=== PATIENT | female | born 1970 | race Caucasian/White ===

== ENCOUNTER 2022-01-24 00:24 | Emergency (ER) | payer OTHER ==
[~2022-01-24] VITALS: Ht 165.1 cm; Wt 113.4 kg
[2022-01-24 01:15] VITALS: BP_SYST 114
[2022-01-24] MEDS ORDERED: ACETAMINOPHEN 500 MG TABLET PO ONE (02:00)
[2022-01-24 05:50] VITALS: BP_SYST 140
== END 2022-01-24 05:50 | disposition home or self-care (01) ==
LOC: SED 00:24
DX: S06.0X0A Concussion without loss of consciousness, initial encounter (principal); S00.83XA Contusion of other part of head, initial encounter; Z88.8 Allergy status to other drugs, medicaments and biological substances; W18.39XA Other fall on same level, initial encounter; Y93.89 Activity, other specified; Y92.89 Other specified places as the place of occurrence of the external cause; Y99.8 Other external cause status
CPT/HCPCS: 70450-TC; 72125-TC; 76376; 81025; 99284